=== PATIENT | male | born 1965 | race Caucasian/White ===

== ENCOUNTER 2022-03-07 13:07 | Emergency (ER) | payer MEDICARE ==
[2022-03-07] MEDS ORDERED: Zofran 4 MG/2 ML VIAL IV ONE (13:18)
[2022-03-07] MEDS ORDERED: Sodium Chloride 0.9% 1000 ML 1,000 ML IV STA ×2 (13:18→15:33)
[2022-03-07] MEDS ORDERED: Zofran 4 MG/2 ML VIAL ONE (13:47)
[2022-03-07] MEDS ORDERED: Sodium Chloride 0.9% 1000 ML 2,000 ML ONE (14:01)
[2022-03-07 14:04] LABS: Hematocrit 48.3 % (42-50); Hemoglobin 17.4 g/dL (12.5-18.0); Mean Cell Volume 112.6 fL (78-100); Mean Corpuscular Hemoglobin 40.6 pg (26-32); Mean Platelet Volume 12.4 fL (7.5-11.0); Platelet Count 47 x10^3/uL (150-450); Red Blood Count 4.29 x10^6/uL (4.1-5.6); Red Cell Distribution Width 13.5 % (11.5-14.0)
[2022-03-07] MEDS ORDERED: PROTONIX 40 MG IV IV ONE ×2 (14:05)
[2022-03-07] MEDS: PROTONIX 40 MG IV IV ONE (14:09)
[2022-03-07 14:12] LABS: White Blood Count 28.3 x10^3/uL (4.0-10.5)
[2022-03-07] MEDS ORDERED: PROTONIX 40 MG IV*** 80 MG in Sodium Chloride 0.9% 500 ML 500 ML IV SCH (14:15)
[2022-03-07 14:18] LABS: ALBUMIN 3.6 g/dL (3.5-5.0); ANION GAP 30.7 MEQ/L (5-15); BILIRUBIN,TOTAL 4.3 mg/dL (0.2-1.3); Creatinine 1 2.42 mg/dL (0.66-1.25); EST GLOMERULAR FILTRATION RATE 29.6 ML/MIN
[2022-03-07 14:26] LABS: Calcium 12.2 mg/dL (8.4-10.2)
[2022-03-07 14:50] LABS: Appearance CLEAR (CLEAR); Bilirubin SMALL (NEGATIVE); Glucose NEGATIVE (NEGATIVE); Ketones SMALL-15 (NEGATIVE); RBC TRACE-INTACT Ery/ul (0-5); Specific Gravity 1.025 (1.005-1.025)
[2022-03-07 14:51] LABS: Dipstick done @ ? MAIN LAB; Hyaline Casts 26-50 /LPF (0-2); Nitrite NEGATIVE (NEGATIVE); Protein,Urine Dip 30 (Negative); RBC 0-2 /HPF (0-2); Urobilinogen 1 mg/dL (0-1); WBC 0-2 /HPF (0-5)
[2022-03-07 14:52] LABS: Urine Cultured Indicated? YES
[2022-03-07 15:05] LABS: Amphetamine,Urine NEGATIVE (NEGATIVE); Barbiturate,Urine NEGATIVE (NEGATIVE); Benzodiazepine,Urine NEGATIVE (NEGATIVE); Cocaine,Urine NEGATIVE (NEGATIVE); Methadone,Urine NEGATIVE (NEGATIVE); Opiate,Urine NEGATIVE (NEGATIVE); PCP,Urine NEGATIVE (NEGATIVE); THC,Urine POSITIVE (NEGATIVE)
[2022-03-07] MEDS ORDERED: Magnesium 1 Gm / 100 Ml D5W*** 100 ML IV ONE ×2 (15:16→15:55)
[2022-03-07] MEDS ORDERED: PIPERACILLIN/TAZOBACTAM IV ONE (15:16)
[2022-03-07] MEDS ORDERED: Sodium Chloride 100ML MINI-BAG PLUS 100 ML IV ONE (15:17)
[2022-03-07] MEDS: PIPERACILLIN/TAZOBACTAM 3.375 GM in Sodium Chloride 100ML MINI-BAG PLUS 100 ML IV ONE ×2 (15:18→16:04)
[2022-03-07] MEDS: Magnesium 1 Gm / 100 Ml D5W*** 100 ML IV SCH ×2 (15:18→15:56)
--- NOTE | 2022-03-07 15:25 | ERPHSYRPT ---
- History of Present Illness Time Seen by Provider: 03/07/22 13:17 Source: patient, family, EMS Exam Limitations: no limitations Patient Subjective Stated Complaint: Dizziness Triage Nursing Assessment: Patient brought into ED per EMS and transferred to bed with assist of 4. Patient A+O x3. Patient's skin flushed and diaphoretic. Patient states he has been vomiting coffee ground emesis since yesterday. Patient's abdomen distended. Patient denies pain or discomfort. Patient extremly dizzy when sitting up. Patient placed in reverse trandelenburg. Physician History: 56 years old male with history of alcohol abuse, hypogonadism on testosterone shots presented in the ER via EMS with chief complaint of dizziness. Patient report he has been having upper abdominal pain moderate intensity sharp nature with associated nausea and multiple episodes of nonprojectile coffee-ground emesis. Is feeling weak fatigued dizzy/lightheaded which gets worse with activity and earlier he fell. Questionable history of hitting his head but no loss of consciousness. Denies any difficulty breathing but is tachycardic with heart rate in 130s on presentation and oxygen saturation around 97% and systolic blood pressure in 70s. Unaware of any liver issues. Timing/Duration: yesterday, constant, gradual onset, worse Severity: moderate Modifying Factors: Worsens With: movement Associated Symptoms: nausea, vomiting, abdominal pain, heartburn, loss of appetite, weakness Allergies/Adverse Reactions: Penicillins Allergy (Unknown, Verified 03/07/22 13:20) Home Medications: Cyclobenzaprine HCl 10 mg [Flexeril 10 MG] 10 mg PO Q4-6HPRN PRN 06/25/13 [History] Oxycodone HCl/Acetaminophen [Percocet 10-325 mg Tablet] 1 each PO Q4-6HPRN PRN 06/25/13 [History] Hx Influenza Vaccination/Date Given: No Hx Pneumococcal Vaccination/Date Given: No Immunizations Up to Date: Yes Travel Risk - International Travel Have you traveled outside of the country in past 3 weeks: No - Coronavirus Screening Are you exhibiting any of the following symptoms?: No Close contact with a COVID-19 positive Pt in past 14-21 Days: No - Vaccine Status Have you recieved a Covid-19 vaccination: No - Review of Systems Constitutional: Fatigue, Weakness Eyes: No Symptoms Ears, Nose, & Throat: No Symptoms Respiratory: No Symptoms Cardiac: No Symptoms Abdominal/Gastrointestinal: Abdominal Pain, Nausea, Vomiting, Hematemesis Genitourinary Symptoms: No Symptoms Musculoskeletal: Arthralgias, Back Pain Skin: No Symptoms Neurological: Dizziness Psychological: Alcohol Abuse Endocrine: No Symptoms Hematologic/Lymphatic: No Symptoms Immunological/Allergic: No Symptoms - Past Medical History Pertinent Past Medical History: Yes Neurological History: Migraines ENT History: No Pertinent History Cardiac History: No Pertinent History Respiratory History: No Pertinent History Endocrine Medical History: No Pertinent History Musculoskeletal History: No Pertinent History GI Medical History: Hernia History: Bladder Cancer Psycho-Social History: No Pertinent History Male Reproductive Disorders: No Pertinent History - Past Surgical History Past Surgical History: Yes Neuro Surgical History: No Pertinent History Cardiac: No Pertinent History Respiratory: Other Gastrointestinal: No Pertinent History Genitourinary: No Pertinent History Musculoskeletal: No Pertinent History Male Surgical History: No Pertinent History Other Surgical History: sinus surgery - Social History Smoking Status: Current every day smoker How long have you smoked: years Exposure to second hand smoke: No Drug Use: none Patient Lives Alone: Yes - Nursing Vital Signs Nursing Vital Signs: Initial Vital Signs Temperature 97.8 F 03/07/22 13:22 Pulse Rate 136 H 03/07/22 13:22 Respiratory Rate 20 03/07/22 13:22 Blood Pressure 95/60 03/07/22 13:22 O2 Sat by Pulse Oximetry 97 03/07/22 13:22 Pain Scale Pain Intensity 0 - Physical Exam General Appearance: mild distress, alert Eye Exam: PERRL/EOMI, scleral icterus Ears, Nose, Throat Exam: dry mucous membranes, pharyngeal erythema Neck Exam: normal inspection, supple, full range of motion Respiratory Exam: normal breath sounds, lungs clear Cardiovascular Exam: normal heart sounds, tachycardia Gastrointestinal/Abdomen Exam: tenderness (Hypoactive bowel sounds upper abdomen with guarding without rebound tenderness.), No normal bowel sounds Back Exam: normal inspection, No CVA tenderness Extremity Exam: normal inspection, normal range of motion, pelvis stable Neurologic Exam: alert, oriented x 3, cooperative, special diet cook II-XII nml as tested SpO2: 98 Procedures - Central Line Time Of Procedure: 14:00 Timeout: Performed Central Line Lumen: triple Lumen Size: 7 [place] Central Line Procedure: chlorahexadine prep, sterile drapes applied, sterile dressing applied, Aseptic Technique, Seldinger Technique Central Line Postion: femoral (R) Anesthesia: 1% Lidocaine cc's of anesthesia: 3 Ultrasound Guided Placement: Yes Complications: none Central Line Post Position: good blood return - Course EKG Interpreted by Me: RATE ([id number]), Sinus Tach, NORMAL AXIS, NORMAL INTERVALS, NORMAL QRS Ordered Tests: Active Orders 24 hr Category Date Time Status EKG-ER Only STAT Care 03/07/22 13:18 Completed Mcdowell [Catheter-[place] Mcdowell] STAT Care 03/07/22 14:04 Completed IV Insertion STAT Care 03/07/22 13:18 Completed NPO (ED) STAT Care 03/07/22 13:18 Completed ABDOMEN AND PELVIS W/0 CONTRAS [CT] Stat Exams 03/07/22 13:17 Completed CHEST WITHOUT CONTRAST [CT] Stat Exams 03/07/22 13:17 Completed HEAD WITHOUT CONTRAST [CT] Stat Exams 03/07/22 13:17 Completed Alcohol [ETHYL ALCOHOL] Stat Lab 03/07/22 14:12 Completed BLOOD CULTURE Stat Lab 03/07/22 17:33 Received CBC W DIFF Stat Lab 03/07/22 13:30 Results CMP Stat Lab 03/07/22 13:30 Completed CULTURE,URINE Stat Lab 03/07/22 14:07 Received LIPASE Stat Lab 03/07/22 13:30 Completed Lactic Acid Stat Lab 03/07/22 13:30 Completed Lactic Acid Stat Lab 03/07/22 16:13 Completed MAG [MAGNESIUM] Stat Lab 03/07/22 13:30 Completed Manual Differential NC Stat Lab 03/07/22 13:30 Results PROTIME WITH INR Stat Lab 03/07/22 13:30 Completed Pathologist Review Stat Lab 03/07/22 13:30 Results TROPONIN Q3H Lab 03/07/22 13:30 Completed TROPONIN Q3H Lab 03/07/22 15:50 Completed UA W/RFX CULTURE Stat Lab 03/07/22 14:07 Completed Urine Triage Profile Stat Lab 03/07/22 14:03 Completed Medication Summary Discontinued Medications Generic Name Dose Route Start Last Admin Trade Name Freq PRN Reason Stop Dose Admin Aztreonam Confirm 03/07/22 16:14 Aztreonam 1 Gm Vial Administered 03/07/22 16:15 Dose 1 gm .ROUTE .STK-MED ONE Sodium Chloride 1,000 mls @ 999 mls/hr 03/07/22 13:18 03/07/22 15:10 Sodium Chloride 0.9% 1000 Ml IV 03/07/22 14:18 Infused .Q1H1M STA Infusion Sodium Chloride Confirm 03/07/22 14:01 Sodium Chloride 0.9% 1000 Ml Administered 03/07/22 14:02 Dose 2,000 mls @ ud .ROUTE .STK-MED ONE Pantoprazole Sodium 80 mg/ 500 mls @ 50 mls/hr 03/07/22 14:15 03/07/22 14:21 Sodium Chloride IV 04/06/22 14:14 50 mls/hr .Q10H ERIK 50 mls/hr Administration Piperacillin Sod/Tazobactam 100 mls @ 200 mls/hr 03/07/22 15:03 03/07/22 16:04 Sod 3.375 gm/ Sodium Chloride IV 03/07/22 15:32 Not Given STAT ONE Magnesium Sulfate/Dextrose 100 mls @ 100 mls/hr 03/07/22 15:15 03/07/22 15:56 Magnesium 1 Gm / 100 Ml D5w IV 03/07/22 17:14 100 mls/hr Q1H ERIK Administration Sodium Chloride Confirm 03/07/22 15:17 Sodium Chloride 100ml Mini-Bag Plus Administered 03/07/22 15:18 Dose 100 mls @ ud IV .STK-MED ONE Sodium Chloride 1,000 mls @ 999 mls/hr 03/07/22 15:33 03/07/22 17:35 Sodium Chloride 0.9% 1000 Ml IV 03/07/22 16:33 Infused .Q1H1M STA Infusion Norepinephrine/Dextrose 8 mg in 250 mls @ 15 mls/hr 03/07/22 15:34 03/07/22 17:53 Norepinephrine 8 Mg/250 Ml-D5w IV 04/06/22 15:33 8 mcg/min .[id number] PRN 15 mls/hr HYPOTENSION Administration Protocol 8 MCG/MIN Sodium Chloride 1,000 mls @ 125 mls/hr 03/07/22 15:45 03/07/22 17:19 Sodium Chloride 0.9% 1000 Ml IV 04/06/22 15:44 125 mls/hr .Q8H ERIK Administration Aztreonam 2 gm/ Sodium 100 mls @ 200 mls/hr 03/07/22 15:38 03/07/22 16:00 Chloride IV 03/07/22 16:07 200 mls/hr STAT ONE Administration Metronidazole 500 mg in 100 mls @ 200 mls/hr 03/07/22 15:38 03/07/22 17:35 Flagyl 500 Mg Ivpb IV 03/07/22 16:07 Infused STAT STA Infusion Dextrose Confirm 03/07/22 16:14 D5w 100ml Mini Bag 100 Ml Administered 03/07/22 16:15 Dose 100 mls @ ud IV .STK-MED ONE Metronidazole Confirm 03/07/22 16:33 Flagyl 500 Mg Ivpb Administered 03/07/22 16:34 Dose 500 mg in 100 mls @ ud IV .STK-MED ONE Magnesium Sulfate/Dextrose Confirm 03/07/22 15:16 Magnesium 1 Gm / 100 Ml D5w Administered 03/07/22 15:17 Dose 100 mls @ ud IV .STK-MED ONE Magnesium Sulfate/Dextrose Confirm 03/07/22 15:55 Magnesium 1 Gm / 100 Ml D5w Administered 03/07/22 15:56 Dose 100 mls @ ud IV .STK-MED ONE Ondansetron HCl 4 mg 03/07/22 13:18 03/07/22 13:49 Ondansetron Hcl 4 Mg/2 Ml Vial IV 03/07/22 13:19 4 mg STAT ONE Administration Ondansetron HCl Confirm 03/07/22 13:47 Ondansetron Hcl 4 Mg/2 Ml Vial Administered 03/07/22 13:48 Dose 4 mg .ROUTE .STK-MED ONE Pantoprazole Sodium 40 mg 03/07/22 13:18 03/07/22 14:09 Pantoprazole 40 Mg Vial IV 03/07/22 13:19 40 mg STAT ONE Administration Pantoprazole Sodium 40 mg 03/07/22 14:05 03/07/22 14:09 Pantoprazole 40 Mg Vial IV 03/07/22 14:06 40 mg STAT ONE Administration Pantoprazole Sodium Confirm 03/07/22 14:05 Pantoprazole 40 Mg Vial Administered 03/07/22 14:06 Dose 80 mg IV .STK-MED ONE Piperacillin Sod/Tazobactam Sod Confirm 03/07/22 15:16 Piperacillin/Tazobactam Sodium 3.375 Gm Vial Administered 03/07/22 15:17 Dose 3.375 gm IV .STK-MED ONE Lab/Rad Data: Laboratory Result Diagrams 03/07/22 13:30 03/07/22 13:30 Laboratory Results 03/07/22 03/07/22 03/07/22 Range/Units 16:13 15:50 14:12 WBC (4.0-10.5) x10^3/uL RBC (4.1-5.6) x10^6/uL Hgb (12.5-18.0) g/dL Hct (42-50) % MCV (78-100) fL MCH (26-32) pg MCHC (32-36) g/dL RDW (11.5-14.0) % Plt Count (150-450) x10^3/uL MPV (7.5-11.0) fL Segmented Neutrophils (36.-66.) % Band Neutrophils (0.0-2.0) % Lymphocytes (Manual) (24-44) % Monocytes (Manual) (0.0-12.0) % Toxic Granulation Platelet Estimate (NORMAL) RBC Morphology Macrocytosis Smear Path Review PT (9.4-12.5) SECONDS INR (0.8-3.0) Sodium (137-145) mmol/L Potassium (3.5-5.1) mmol/L Chloride (98-107) mmol/L Carbon Dioxide (22-30) mmol/L Anion Gap (5-15) MEQ/L BUN (9-20) mg/dL Creatinine (0.66-1.25) mg/dL Estimated GFR ML/MIN Glucose (74-106) mg/dL Lactic Acid 8.4 H (0.4-2.0) Calcium (8.4-10.2) mg/dL Magnesium (1.6-2.3) mg/dL Total Bilirubin (0.2-1.3) mg/dL AST (17-59) U/L ALT (0-50) U/L Alkaline Phosphatase (38-126) U/L Ammonia (9-30) umol/L Troponin I 0.199 H* (0.000-0.034) ng/mL Serum Total Protein (6.3-8.2) g/dL Albumin (3.5-5.0) g/dL Lipase (23-300) U/L Urinalys Dipstick Clnc Urine Color (YELLOW) Urine Appearance (CLEAR) Urine pH (5-6) Ur Specific [place] (1.005-1.025) POC Urine Protein Conf (Negative) Urine Ketones (NEGATIVE) Urine Nitrite (NEGATIVE) Urine Bilirubin (NEGATIVE) Urine Urobilinogen (0-1) mg/dL Urine Leukocytes (NEGATIVE) Urine WBC (Auto) (0-5) /HPF Urine RBC (Auto) (0-2) /HPF U Hyaline Cast (Auto) (0-2) /LPF U Epithel Cells (Auto) (FEW) /HPF Urine Bacteria (Auto) (NEGATIVE) /HPF Urine RBC (0-5) Alexey/ul Ur Culture Indicated? Urine Glucose (NEGATIVE) mg/dL Urine Opiates Level (NEGATIVE) Ur Methadone (NEGATIVE) Urine Barbiturates (NEGATIVE) Ur Phencyclidine (PCP) (NEGATIVE) Urine Amphetamine (NEGATIVE) U Benzodiazepine Level (NEGATIVE) Urine Cocaine (NEGATIVE) Urine Marijuana (THC) (NEGATIVE) Ethyl Alcohol 25 H (0-10) mg/dL 03/07/22 03/07/22 03/07/22 Range/Units 14:07 14:03 13:30 WBC (4.0-10.5) x10^3/uL RBC (4.1-5.6) x10^6/uL Hgb (12.5-18.0) g/dL Hct (42-50) % MCV (78-100) fL MCH (26-32) pg MCHC (32-36) g/dL RDW (11.5-14.0) % Plt Count (150-450) x10^3/uL MPV (7.5-11.0) fL Segmented Neutrophils (36.-66.) % Band Neutrophils (0.0-2.0) % Lymphocytes (Manual) (24-44) % Monocytes (Manual) (0.0-12.0) % Toxic Granulation Platelet Estimate (NORMAL) RBC Morphology Macrocytosis Smear Path Review PT (9.4-12.5) SECONDS INR (0.8-3.0) Sodium (137-145) mmol/L Potassium (3.5-5.1) mmol/L Chloride (98-107) mmol/L Carbon Dioxide (22-30) mmol/L Anion Gap (5-15) MEQ/L BUN (9-20) mg/dL Creatinine (0.66-1.25) mg/dL Estimated GFR ML/MIN Glucose (74-106) mg/dL Lactic Acid (0.4-2.0) Calcium (8.4-10.2) mg/dL Magnesium (1.6-2.3) mg/dL Total Bilirubin (0.2-1.3) mg/dL AST (17-59) U/L ALT (0-50) U/L Alkaline Phosphatase (38-126) U/L Ammonia (9-30) umol/L Troponin I 0.186 H* (0.000-0.034) ng/mL Serum Total Protein (6.3-8.2) g/dL Albumin (3.5-5.0) g/dL Lipase (23-300) U/L Urinalys Dipstick Clnc MAIN LAB Urine Color LELA (YELLOW) Urine Appearance CLEAR (CLEAR) Urine pH 5.0 (5-6) Ur Specific [place] 1.025 (1.005-1.025) POC Urine Protein Conf 30 (Negative) Urine Ketones SMALL-15 (NEGATIVE) Urine Nitrite NEGATIVE (NEGATIVE) Urine Bilirubin SMALL (NEGATIVE) Urine Urobilinogen 1 (0-1) mg/dL Urine Leukocytes NEGATIVE (NEGATIVE) Urine WBC (Auto) 0-2 (0-5) /HPF Urine RBC (Auto) 0-2 (0-2) /HPF U Hyaline Cast (Auto) 26-50 (0-2) /LPF U Epithel Cells (Auto) NONE (FEW) /HPF Urine Bacteria (Auto) NONE (NEGATIVE) /HPF Urine RBC TRACE-INTACT (0-5) Alexey/ul Ur Culture Indicated? YES Urine Glucose NEGATIVE (NEGATIVE) mg/dL Urine Opiates Level NEGATIVE (NEGATIVE) Ur Methadone NEGATIVE (NEGATIVE) Urine Barbiturates NEGATIVE (NEGATIVE) Ur Phencyclidine (PCP) NEGATIVE (NEGATIVE) Urine Amphetamine NEGATIVE (NEGATIVE) U Benzodiazepine Level NEGATIVE (NEGATIVE) Urine Cocaine NEGATIVE (NEGATIVE) Urine Marijuana (THC) POSITIVE (NEGATIVE) Ethyl Alcohol (0-10) mg/dL 03/07/22 03/07/22 03/07/22 Range/Units 13:30 13:30 13:30 WBC (4.0-10.5) x10^3/uL RBC (4.1-5.6) x10^6/uL Hgb (12.5-18.0) g/dL Hct (42-50) % MCV (78-100) fL MCH (26-32) pg MCHC (32-36) g/dL RDW (11.5-14.0) % Plt Count (150-450) x10^3/uL MPV (7.5-11.0) fL Segmented Neutrophils (36.-66.) % Band Neutrophils (0.0-2.0) % Lymphocytes (Manual) (24-44) % Monocytes (Manual) (0.0-12.0) % Toxic Granulation Platelet Estimate (NORMAL) RBC Morphology Macrocytosis Smear Path Review PT > 90.0 H (9.4-12.5) SECONDS INR > 5.00 H* (0.8-3.0) Sodium 126 L (137-145) mmol/L Potassium 5.0 (3.5-5.1) mmol/L Chloride 79 L (98-107) mmol/L Carbon Dioxide 21 L (22-30) mmol/L Anion Gap 30.7 H (5-15) MEQ/L BUN 25 H (9-20) mg/dL Creatinine 2.42 H (0.66-1.25) mg/dL Estimated GFR 29.6 ML/MIN Glucose 161 H (74-106) mg/dL Lactic Acid (0.4-2.0) Calcium 12.2 H* (8.4-10.2) mg/dL Magnesium 1.3 L (1.6-2.3) mg/dL Total Bilirubin 4.30 H (0.2-1.3) mg/dL AST 135 H (17-59) U/L ALT 74 H (0-50) U/L Alkaline Phosphatase 50 (38-126) U/L Ammonia (9-30) umol/L Troponin I (0.000-0.034) ng/mL Serum Total Protein 7.0 (6.3-8.2) g/dL Albumin 3.6 (3.5-5.0) g/dL Lipase 33184 H (23-300) U/L Urinalys Dipstick Clnc Urine Color (YELLOW) Urine Appearance (CLEAR) Urine pH (5-6) Ur Specific [place] (1.005-1.025) POC Urine Protein Conf (Negative) Urine Ketones (NEGATIVE) Urine Nitrite (NEGATIVE) Urine Bilirubin (NEGATIVE) Urine Urobilinogen (0-1) mg/dL Urine Leukocytes (NEGATIVE) Urine WBC (Auto) (0-5) /HPF Urine RBC (Auto) (0-2) /HPF U Hyaline Cast (Auto) (0-2) /LPF U Epithel Cells (Auto) (FEW) /HPF Urine Bacteria (Auto) (NEGATIVE) /HPF Urine RBC (0-5) Alexey/ul Ur Culture Indicated? Urine Glucose (NEGATIVE) mg/dL Urine Opiates Level (NEGATIVE) Ur Methadone (NEGATIVE) Urine Barbiturates (NEGATIVE) Ur Phencyclidine (PCP) (NEGATIVE) Urine Amphetamine (NEGATIVE) U Benzodiazepine Level (NEGATIVE) Urine Cocaine (NEGATIVE) Urine Marijuana (THC) (NEGATIVE) Ethyl Alcohol (0-10) mg/dL 03/07/22 03/07/22 03/07/22 Range/Units 13:30 13:30 11:50 WBC 28.3 H* (4.0-10.5) x10^3/uL RBC 4.29 (4.1-5.6) x10^6/uL Hgb 17.4 (12.5-18.0) g/dL Hct 48.3 (42-50) % MCV 112.6 H (78-100) fL MCH 40.6 H (26-32) pg MCHC 36.0 (32-36) g/dL RDW 13.5 (11.5-14.0) % Plt Count 47 L (150-450) x10^3/uL MPV 12.4 H (7.5-11.0) fL Segmented Neutrophils 86 H (36.-66.) % Band Neutrophils 6 H (0.0-2.0) % Lymphocytes (Manual) 3 L (24-44) % Monocytes (Manual) 5 (0.0-12.0) % Toxic Granulation 1+ Platelet Estimate DECREASED (NORMAL) RBC Morphology ABNORMAL Macrocytosis 2+ Smear Path Review Pending PT (9.4-12.5) SECONDS INR (0.8-3.0) Sodium (137-145) mmol/L Potassium (3.5-5.1) mmol/L Chloride (98-107) mmol/L Carbon Dioxide (22-30) mmol/L Anion Gap (5-15) MEQ/L BUN (9-20) mg/dL Creatinine (0.66-1.25) mg/dL Estimated GFR ML/MIN Glucose (74-106) mg/dL Lactic Acid 14.4 H (0.4-2.0) Calcium (8.4-10.2) mg/dL Magnesium (1.6-2.3) mg/dL Total Bilirubin (0.2-1.3) mg/dL AST (17-59) U/L ALT (0-50) U/L Alkaline Phosphatase (38-126) U/L Ammonia 10 (9-30) umol/L Troponin I (0.000-0.034) ng/mL Serum Total Protein (6.3-8.2) g/dL Albumin (3.5-5.0) g/dL Lipase (23-300) U/L Urinalys Dipstick Clnc Urine Color (YELLOW) Urine Appearance (CLEAR) Urine pH (5-6) Ur Specific [place] (1.005-1.025) POC Urine Protein Conf (Negative) Urine Ketones (NEGATIVE) Urine Nitrite (NEGATIVE) Urine Bilirubin (NEGATIVE) Urine Urobilinogen (0-1) mg/dL Urine Leukocytes (NEGATIVE) Urine WBC (Auto) (0-5) /HPF Urine RBC (Auto) (0-2) /HPF U Hyaline Cast (Auto) (0-2) /LPF U Epithel Cells (Auto) (FEW) /HPF Urine Bacteria (Auto) (NEGATIVE) /HPF Urine RBC (0-5) Alexey/ul Ur Culture Indicated? Urine Glucose (NEGATIVE) mg/dL Urine Opiates Level (NEGATIVE) Ur Methadone (NEGATIVE) Urine Barbiturates (NEGATIVE) Ur Phencyclidine (PCP) (NEGATIVE) Urine Amphetamine (NEGATIVE) U Benzodiazepine Level (NEGATIVE) Urine Cocaine (NEGATIVE) Urine Marijuana (THC) (NEGATIVE) Ethyl Alcohol (0-10) mg/dL - Progress Progress: pain not gone completely, re-examined Progress Note: 03/07/22 15:25 Patient was in mild to moderate distress on presentation, central line is placed, given fluid bolus as per sepsis protocol. Blood pressure still systolic in the 80s but MAP is greater than 65. Work-up showed white count of 28, low platelet 47 with liver functions total bili 4.3 and mildly elevated AST/ALT. Patient also has renal failure with a creatinine of 2.4 with a lipase of 12 K's. Hemoglobin is 17 Which is probably secondary to his testosterone shots and s tays high. Patient is feeling better on reevaluation. Given a dose of antibiotic as well. Has low sodium which I believe is secondary to beer potomania/alcohol abuse. Has mildly low magnesium and will give replacement. Patient is probably developing hepatorenal syndrome. D/w Dr. Parrish at [facility], reviewed history, work-up and recommended starting on Levophed if pressure does not improve well. 03/07/22 15:39 CT abdomen pelvis showed acute pancreatitis with patulous distal esophagus. Plan discussed with family in detail who understand and agree with transfer. Also has elevated troponin 0.18 which I believe is secondary to shock as EKG is sinus tach with no ST elevations. Discussed with : Other Counseled pt/family regarding: drug and/or alcohol abuse, lab results, diagnosis, rad results - Departure Departure Disposition: Transfer Clinical Impression: Acute pancreatitis, Septic shock, Liver failure, Acute renal failure, Hypomagnesemia, GI bleed, Elevated INR, Elevated troponin Condition: Critical Critical Care Time: Yes Critical Care Time(excluding separately billable procedures): Critical 75-104 mins Referrals: NATHAN MORALES [Primary Care Provider] - Follow up/PCP as directed
[2022-03-07] MEDS ORDERED: NOREPINEPHRINE 8 MG/250 ML-D5W 8 MG/250 ML PLAST..BAG IV PRN (15:34)
[2022-03-07 15:38] LABS: BAND 6 % (0.0-2.0); Lymphocytes 3 % (24-44); Macrocytosis 2+; Monocyte 5 % (0.0-12.0); Platelet Estimate DECREASED (NORMAL); Total Cells Counted 100; Toxic Granulation 1+
[2022-03-07] MEDS ORDERED: FLAGYL 500 MG IVPB 500 MG/100 ML BAG IV STA (15:38)
[2022-03-07] MEDS ORDERED: AZACTAM 1 GM*** 2 GM in Sodium Chloride 0.9% 100 ML IV ONE (15:38)
[2022-03-07] MEDS ORDERED: Sodium Chloride 0.9% 1000 ML 1,000 ML IV SCH (15:45)
[2022-03-07] MEDS ORDERED: D5w 100ML Mini Bag 100 ML 100 ML IV ONE (16:14)
[2022-03-07] MEDS ORDERED: AZACTAM 1 GM ONE (16:14)
[2022-03-07] MEDS ORDERED: FLAGYL 500 MG IVPB 500 MG/100 ML BAG IV ONE (16:33)
[2022-03-07 17:04] LABS: PROTIME > 90.0 SECONDS (9.4-12.5)
[2022-03-07 17:07] LABS: INR > 5.00 (0.8-3.0)
[2022-03-07 17:42] VITALS: BP 92/72; PULSE 124
--- NOTE | 2022-03-07 18:44 | XRAY ---
Indication: Dizziness and weakness. Coffee ground emesis. Multiple contiguous axial images obtained through the head without contrast. Comparison: None Age-appropriate global atrophy and minimal periventricular degenerative micro-ischemia. No acute intracranial hemorrhage, abnormal extra-axial fluid collection, or mass effect. Fourth ventricle is midline without hydrocephalus. Bony calvarium intact. Visualized paranasal sinuses and mastoid air cells are clear. Impression: Nonacute senile brain. Comment: Preliminary interpretation made by [facility]. No critical discrepancy.
--- NOTE | 2022-03-07 18:47 | XRAY ---
Indication: Short of breath. Dizziness and weakness. Coffee ground emesis. Multiple contiguous axial images obtained through the head without contrast. Comparison: None Lungs demonstrates moderate diffuse pulmonary emphysema, mild bilateral dependent atelectasis, lingula fibrosis/scarring, and tiny left lower lobe calcified granuloma. No suspicious pulmonary mass, infiltrate, or effusion. Heart not enlarged. Aorta mildly arteriosclerotic without aneurysm. No pathologic mediastinal lymphadenopathy. Moderate sized hiatal hernia with fluid distended partial intrathoracic stomach. Additional mild fluid distended esophagus presume from gastroesophageal reflux. Bony thorax intact with minimal degenerative changes throughout the spine and subacute to chronic anterior left 3/[address] abdomen/pelvis reported separately. Impression: 1. Pulmonary emphysema, dependent atelectasis, lingula fibrosis/scarring, and old granulomatous disease. 2. Moderate-sized hiatal hernia with fluid distended partial intrathoracic stomach. 3. GERD. Comment: Preliminary interpretation made by [facility]. No critical discrepancy.
--- NOTE | 2022-03-07 18:51 | XRAY ---
Indication: Midabdomen pain. Dizziness and weakness. Coffee ground emesis. Multiple contiguous axial images obtained through the abdomen and pelvis without contrast. Comparison: June 12, 2013. CT chest reported separately. Stomach is distended with food/fluid. Noncontrasted stomach and bowel loops appear nonobstructed. New abnormal edematous pancreas with peripancreatic stranding favoring acute pancreatitis. Small fluid in both colic gutters and pelvis presumed reactive. No walled off fluid collection or free air. New markedly diffuse fatty liver. New Mcdowell balloon catheter empties the urinary bladder. Remaining gallbladder, spleen, adrenal glands, kidneys, and ureters are unremarkable for noncontrast exam. Progressive worsening moderate scattered aortoiliac calcifications without AAA. Osseous structures intact with mild degenerative changes throughout the spine. Interval right abdomen ventral hernia repair with new intact mesh graft. Impression: 1. New acute pancreatitis with reactive abdomen/pelvic free fluid. 2. New diffuse fatty liver. 3. Worsening arteriosclerotic disease. Comment: Preliminary interpretation made by [facility]. No critical discrepancy.
[2022-03-07 22:51] VITALS: O2SAT 98
== END 2022-03-07 18:38 | disposition short-term general hospital (02) ==
LOC: ED 13:07
DX: K85.90 Acute pancreatitis without necrosis or infection, unspecified (principal); E83.42 Hypomagnesemia; N17.9 Acute kidney failure, unspecified; A41.9 Sepsis, unspecified organism; R65.21 Severe sepsis with septic shock; K72.00 Acute and subacute hepatic failure without coma; K92.2 Gastrointestinal hemorrhage, unspecified; R79.1 Abnormal coagulation profile; R77.8 Other specified abnormalities of plasma proteins; R42 Dizziness and giddiness; R10.10 Upper abdominal pain, unspecified; R11.2 Nausea with vomiting, unspecified; R53.1 Weakness; Z72.0 Tobacco use; Z79.891 Long term (current) use of opiate analgesic; Z28.310 Unvaccinated for COVID-19
CPT/HCPCS: 36415; 36556; 51702; 70450; 71250; 74176; 80053; 80307; 81015; 82140; 83605; 83690; 83735; 84484; 85025; 85610; 87040; 87086; 93005; 96360; 96361; 96365; 96367; 96374; 96375; 96376; 99285; 99291; 99292; G0480; J2405; J3475